=== PATIENT | female | born 1970 | race Two or more races ===

== ENCOUNTER 2016-07-20 08:36 | Emergency (ER) | payer OTHER ==
[~2016-07-20] VITALS: Ht 170.2 cm; Wt 54.4 kg
[2016-07-20 08:52] VITALS: BP 112/78
[2016-07-20] MEDS ORDERED: HYDROmorphone HCL 2 MG/ML VL IM ONE (09:45)
[2016-07-20] MEDS ORDERED: ONDANSETRON HCL 4 MG/2 ML VIAL IM ONE (09:45)
== END 2016-07-20 11:03 | disposition home or self-care (01) ==
LOC: EDBD 08:36 → ER 08:40
DX: S89.92XA Unspecified injury of left lower leg, initial encounter (principal); M25.552 Pain in left hip; W19.XXXA Unspecified fall, initial encounter; Y93.89 Activity, other specified; Y99.8 Other external cause status; Y92.89 Other specified places as the place of occurrence of the external cause
CPT/HCPCS: 73700; 96372; 99284; J1170; J2405